=== PATIENT | female | born 1990 | race Caucasian/White ===

== ENCOUNTER 2018-04-25 17:39 | Emergency (ER) | payer BC ==
[2018-04-25 17:56] VITALS: BP 149/93
--- NOTE | 2018-04-25 18:12 | ED ---
Skin Complaint - HPI Summary HPI Summary: 28 yr old female with the complaint of rash to the left medial upper arm. The patient had a bee or wasp sting a week ago. Over all her arm is much better. She had been putting ointment and a bandage on it. The bandage when she pulled it off abraided a trace amount of skin. She wanted to be sure her arm hasn't gotten infected. She denies fever, chills. She states her arm is less red now than even yesterday. Only minor itching, but no pain. Less swelling. - History of Current Complaint Chief Complaint: UCSkin Time Seen by Provider: 04/25/18 17:57 Stated Complaint: INSECT BITE Hx Last Menstrual Period: NOT REGULAR Pain Intensity: 3 - Allergy/Home Medications Allergies/Adverse Reactions: Allergies Allergy/AdvReac Type Severity Reaction Status Date / Time No Known Allergies Allergy Verified 08/04/17 19:11 Home Medications: Home Medications Melatonin 1 each PO BEDTIME 04/25/18 [History Confirmed 04/25/18] PMH/Surg Hx/FS Hx/Imm Hx Previously Healthy: Yes - Surgical History Surgery Procedure, Year, and Place: LEEP (RT [facility] #), uterine polyp removed Infectious Disease History: No Infectious Disease History: Denies: Traveled Outside the [place] in Last 30 Days - Family History Known Family History: Positive: None Negative: Diabetes - Social History Occupation: Employed Full-time Alcohol Use: Rare Substance Use Type: Reports: None Smoking Status (MU): Never Smoked Tobacco Review of Systems Constitutional: Negative Negative: Fever, Chills Positive: Other - rash around the bite area. All Other Systems Reviewed And Are Negative: Yes Physical Exam Triage Information Reviewed: Yes Vital Signs On Initial Exam: Initial Vitals Temp Pulse Resp BP Pulse Ox 97.7 F 80 20 149/93 100 04/25/18 17:52 04/25/18 17:52 04/25/18 17:52 04/25/18 17:52 04/25/18 17:52 Vital Signs Reviewed: Yes Appearance: Positive: Obese Skin: Positive: Warm, Skin Color Reflects Adequate Perfusion, Other - she has an area about 3 inch in diameter that appears red but faint, not cellulitic, no abscess. Appears like a localized reaction that seems to be dissapating. Head/Face: Positive: Normal Head/Face Inspection Eyes: Positive: EOMI ENT: Positive: Normal ENT inspection. Negative: Muffled voice, Hoarse voice Respiratory/Lung Sounds: Positive: Other - normal effort Cardiovascular: Positive: Pulses are Symmetrical in both Upper and Lower Extremities - strong radial left wrist pulse Musculoskeletal: Positive: Strength/ROM Intact Neurological: Positive: Sensory/Motor Intact, Alert, Oriented to Person Place, Time, CN Intact II-III Psychiatric: Positive: Normal - [place] Coma Scale Best Eye Response: 4 - Spontaneous Best Motor Response: 6 - Obeys Commands Best Verbal Response: 5 - Oriented Coma Scale Total: 15 Diagnostics - Vital Signs Vital Signs Temp Pulse Resp BP Pulse Ox 04/25/18 17:52 97.7 F 80 20 149/93 100 - Laboratory Lab Statement: Any lab studies that have been ordered have been reviewed, and results considered in the medical decision making process. Course/Dx - Course Course Of Treatment: 28 yr old female with localized reaction getting less and it has improved. Do not think this is infected and it is resolving on own. - Diagnoses Provider Diagnoses: Allergic reaction to bee sting, Hypertension Discharge - Sign-Out/Discharge Documenting (check all that apply): Patient Departure - Discharge Plan Condition: Good Disposition: HOME Patient Education Materials: Insect Bite or Sting (ED), Hypertension (ED) Referrals: No Primary Care Phys,NOPCP [Primary Care Provider] - [facility] [place] [facility] [Outside] - Billing Disposition and Condition Condition: GOOD Disposition: Home
== END 2018-04-25 18:21 | disposition home or self-care (01) ==
LOC: UCCORT 17:39
DX: T63.441A Toxic effect of venom of bees, accidental (unintentional), initial encounter (principal); R21 Rash and other nonspecific skin eruption; I10 Essential (primary) hypertension; Y92.9 Unspecified place or not applicable
CPT/HCPCS: 99211; G0463